=== PATIENT | female | born 1940 | race Caucasian/White ===

== ENCOUNTER 2023-04-13 13:03 | Emergency (ER) | payer MEDICARE ==
[~2023-04-13] VITALS: Ht 157.5 cm; Wt 63.5 kg
[2023-04-13 13:09] VITALS: BP 142/88
--- NOTE | 2023-04-13 13:11 | NUR ---
PT BIBA TO BED 5
--- NOTE | 2023-04-13 13:11 | NUR ---
MD GRANDA AT BEDSIDE FOR EVALUATION
[2023-04-13] MEDS ORDERED: BACITRACIN OINT 500 UNITS/GM PKT TP ONE (13:19)
--- NOTE | 2023-04-13 13:49 | NUR ---
Patient discharged with v/s stable. Written and verbal after care instructions given and explained. Patient verbalized understanding. Ambulatory with steady gait. All questions addressed prior to discharge. Advised to follow up with PMD.
[2023-04-13 14:55] VITALS: BP 142/88
== END 2023-04-13 13:49 | disposition home or self-care (01) ==
LOC: MED 13:03
DX: S40.022A Contusion of left upper arm, initial encounter (principal); E11.9 Type 2 diabetes mellitus without complications; I10 Essential (primary) hypertension; Z90.710 Acquired absence of both cervix and uterus; Z79.899 Other long term (current) drug therapy; V89.2XXA Person injured in unspecified motor-vehicle accident, traffic, initial encounter; Y93.89 Activity, other specified; Y92.89 Other specified places as the place of occurrence of the external cause; Y99.8 Other external cause status
CPT/HCPCS: 99283